=== PATIENT | male | born 1990 | race African-American/Black ===

== ENCOUNTER 2021-04-09 17:01 | Emergency (ER) | payer OTHER ==
[2021-04-09 17:15] VITALS: BMI 21.3
[2021-04-09] MEDS ORDERED: LORazepam 2 MG/ML SDV VIAL IVPUSH ONE ×3 (17:30→18:04)
[2021-04-09] MEDS ORDERED: LORazepam 2 MG/ML SDV VIAL ONE ×3 (17:36→18:04)
[2021-04-09] MEDS ORDERED: levETIRAcetam 500 MG/5 ML INJECTION VIAL IVPB ONE ×2 (17:41→17:47)
[2021-04-09] MEDS ORDERED: SODIUM CHLORIDE 0.9% 500 ML INFUS.BAG IV ONE (17:48)
[2021-04-09 18:24] LABS: BASO % 0.8 % (0-2.0); EOS % 1.6 % (0-4.5); HEMATOCRIT 45.3 % (35.4-49); HEMOGLOBIN 15.6 GM/dL (11.7-16.9); LYMPH % 21.8 % (8-40); MCH 31.8 pg (25.7-33.7); MCHC 34.5 g/dl (32.0-35.9); MEAN PLT VOLUME 7.1 fl (7.5-11.1); MONO % 7.1 % (3.8-10.2); NEUT % 68.7 % (42.8-82.8); PLATELET COUNT 225 10^3/uL (134-434); RBC 4.92 M/mm3 (4.00-5.60); RDW 13.4 % (11.9-15.9); WHITE BLOOD COUNT 10.4 K/mm3 (4.0-10.0)
[2021-04-09 18:42] LABS: CHLORIDE 101 mmol/L (98-107); SODIUM 136 mmol/L (136-145)
[2021-04-09 18:44] LABS: CALCIUM 8.6 mg/dL (8.5-10.1)
[2021-04-09 18:45] LABS: ALBUMIN 4.3 g/dl (3.4-5.0); BLOOD UREA NITROGEN 17.2 mg/dL (7-18); CO2 30 mmol/L (21-32); GLUCOSE,RANDOM 123 mg/dL (74-106)
[2021-04-09 18:48] LABS: CREATININE 1.3 mg/dL (0.55-1.3); SGOT/AST 50 U/L (15-37); SGPT/ALT 28 U/L (13-61)
[2021-04-09 18:50] LABS: BILIRUBIN,TOTAL 0.6 mg/dL (0.2-1); TOT PROT 8.4 g/dl (6.4-8.2)
[2021-04-09 18:51] LABS: ALK PHOS 59 U/L (45-117)
[2021-04-09 19:41] LABS: ANION GAP 5 MMOL/L (8-16)
[2021-04-09] MEDS ORDERED: ONDANSETRON 4 MG/2 ML VIAL ONE (19:52)
[2021-04-09 21:11] LABS: CALCIUM 8.6 mg/dL (8.5-10.1)
[2021-04-09 21:12] LABS: BLOOD UREA NITROGEN 17.7 mg/dL (7-18)
[2021-04-09 21:15] LABS: CREATININE 1.1 mg/dL (0.55-1.3)
[2021-04-09 23:25] LABS: URINE APPEARANCE CLEAR; URINE BILIRUBIN NEGATIVE (NEGATIVE); URINE COLOR YELLOW; URINE GLUCOSE (UA) NEGATIVE (NEGATIVE); URINE KETONE NEGATIVE (NEGATIVE); URINE LEUK ESTERASE NEGATIVE (NEGATIVE); URINE NITRITE NEGATIVE (NEGATIVE); URINE PROTEIN NEGATIVE (NEGATIVE); URINE UROBILINOGEN 0.2 mg/dL (0.2-1.0)
[2021-04-09 23:32] LABS: URINE BARBITURATES NEGATIVE (NEGATIVE); URINE BENZODIAZEPINES NEGATIVE (NEGATIVE)
[2021-04-09 23:33] LABS: COCAINE, UR NEGATIVE (NEGATIVE); METHADONE, UR NEGATIVE (NEGATIVE); OPIATES, URI NEGATIVE (NEGATIVE); PHENCYCLIDINE,URINE NEGATIVE (NEGATIVE); URINE AMPHETAMINES NEGATIVE (NEGATIVE)
[2021-04-10 04:15] VITALS: BP 129/80; PULSE 94; TEMP 98.1
== END 2021-04-10 04:28 | disposition short-term general hospital (02) ==
LOC: JER 17:01
PROC: 3E033GC Introduction of Other Therapeutic Substance into Peripheral Vein, Percutaneous Approach (ICD-10-PCS; principal; 2021-04-09)
PROC: 3E033NZ Introduction of Analgesics, Hypnotics, Sedatives into Peripheral Vein, Percutaneous Approach (ICD-10-PCS; 2021-04-09)
PROC: 3E033NZ Introduction of Analgesics, Hypnotics, Sedatives into Peripheral Vein, Percutaneous Approach (ICD-10-PCS; 2021-04-09)
PROC: 3E033NZ Introduction of Analgesics, Hypnotics, Sedatives into Peripheral Vein, Percutaneous Approach (ICD-10-PCS; 2021-04-09)
PROC: 3E033GC Introduction of Other Therapeutic Substance into Peripheral Vein, Percutaneous Approach (ICD-10-PCS; 2021-04-09)
DX: G40.89 Other seizures (principal)
CPT/HCPCS: 36415; 80048; 80053; 80177; 80307; 81003; 84443; 85025; 99291; C9803; U0003; U0005

== ENCOUNTER 2021-08-02 10:19 | Emergency (ER) | payer OTHER ==
[2021-08-02] MEDS ORDERED: ACETAMINOPHEN 1000 MG/100 ML VIAL IVPB ONE (11:07)
[2021-08-02] MEDS ORDERED: levETIRAcetam 500 MG/5 ML INJECTION VIAL IVPB ONE ×2 (11:08→11:57)
[2021-08-02] MEDS ORDERED: ZONISAMIDE 100 MG CAPSULE PO ONE (11:18)
[2021-08-02 11:26] VITALS: BMI 19.2
[2021-08-02] MEDS ORDERED: ACETAMINOPHEN INJECTION 100 ML IVPB ONE (11:57)
[2021-08-02 12:37] LABS: BASO % 0.9 % (0-2.0); EOS % 0.3 % (0-4.5); HEMATOCRIT 43.6 % (35.4-49); HEMOGLOBIN 14.8 GM/dL (11.7-16.9); LYMPH % 11.3 % (8-40); MCH 31.3 pg (25.7-33.7); MCHC 33.9 g/dl (32.0-35.9); MEAN CELL VOLUME 92.4 fl (80-96); MEAN PLT VOLUME 6.8 fl (7.5-11.1); MONO % 7.6 % (3.8-10.2); NEUT % 79.9 % (42.8-82.8); PLATELET COUNT 257 10^3/uL (134-434); RBC 4.72 M/mm3 (4.00-5.60); RDW 12.9 % (11.9-15.9); WHITE BLOOD COUNT 8.3 K/mm3 (4.0-10.0)
[2021-08-02 12:40] LABS: BLOOD UREA NITROGEN 12.2 mg/dL (7-18); CALCIUM 8.9 mg/dL (8.5-10.1); MAGNESIUM 1.9 mg/dL (1.8-2.4)
[2021-08-02 12:43] LABS: CREATININE 1.1 mg/dL (0.55-1.3); PHOSPHOROUS 1.8 mg/dL (2.5-4.9)
[2021-08-02 12:45] LABS: BILIRUBIN,TOTAL 0.3 mg/dL (0.2-1); TOT PROT 7.7 g/dl (6.4-8.2)
[2021-08-02 13:55] VITALS: TEMP 99.3
[2021-08-02 14:41] VITALS: BP 108/60; PULSE 70
== END 2021-08-02 16:43 | disposition home or self-care (01) ==
LOC: JER 10:19
PROC: 3E0333Z Introduction of Anti-inflammatory into Peripheral Vein, Percutaneous Approach (ICD-10-PCS; principal; 2021-08-02)
PROC: 3E033GC Introduction of Other Therapeutic Substance into Peripheral Vein, Percutaneous Approach (ICD-10-PCS; 2021-08-02)
DX: G40.89 Other seizures (principal)
CPT/HCPCS: 36415; 80053; 80177; 82962; 83735; 84100; 85025; 99284-25; C9803; J0131; U0003; U0005